=== PATIENT | female | born 1990 | race Caucasian/White ===

== ENCOUNTER 2019-05-13 07:23 | Inpatient (IN) | payer MEDICAID ==
[~2019-05-13] VITALS: Ht 157.5 cm; Wt 84.4 kg
[2019-05-13 07:29] VITALS: Ht 157.5 cm; Wt 84.4 kg
[2019-05-13 07:30] VITALS: BP 123/78; PULSE 98; RESP 19
[2019-05-13] MEDS ORDERED: AMPICILLIN 2 GM/NS (PMX) 100 ML ONE (07:54)
[2019-05-13] MEDS ORDERED: IBUPROFEN 600 MG TAB PO PRN (08:00)
[2019-05-13] MEDS ORDERED: MINERAL OIL LIGHT 10 ML VIAL TOP PRN (08:00)
[2019-05-13] MEDS ORDERED: LIDOCAINE 1% (MPF) 30 ML INJ INJ PRN (08:00)
[2019-05-13] MEDS ORDERED: OXYTOCIN 30 UNITS/LR 500 ML IV PRN ×2 (08:00→11:30)
[2019-05-13] MEDS ORDERED: BUTORPHANOL 2 MG INJ IV PRN (08:00)
[2019-05-13] MEDS ORDERED: METHYLERGONOVINE 0.2 MG INJ IM PRN ×2 (08:00→11:30)
[2019-05-13] MEDS ORDERED: CARBOPROST 250 MCG INJ IM PRN ×2 (08:00→11:30)
[2019-05-13] MEDS ORDERED: OXYTOCIN 30 UNITS/LR 500 ML IV SCH ×3 (08:00→11:09)
[2019-05-13] MEDS ORDERED: AMPICILLIN 2 GM/NS (PMX) 100 ML IV ONE (08:00)
[2019-05-13] MEDS ORDERED: MISOPROSTOL 200 MCG TAB PR PRN ×2 (08:00→11:30)
[2019-05-13] MEDS: LACTATED RINGER'S 1,000 ML IV SCH ×2 (08:05→18:04)
[2019-05-13] MEDS ORDERED: morphine 10 MG INJ ONE ×2 (10:20)
[2019-05-13] MEDS ORDERED: morphine LIQ (10 MG/5 ML) CUP PO ONE (11:00)
[2019-05-13] MEDS ORDERED: morphine 10 MG INJ IV ONE (11:00)
[2019-05-13] MEDS ORDERED: DIPHENHYDRAMINE 25 MG CAP PO PRN (11:30)
[2019-05-13] MEDS ORDERED: morphine 10 MG INJ IM ONE (11:30)
[2019-05-13] MEDS ORDERED: ACETAMINOPHEN 325 MG TAB PO PRN (11:30)
[2019-05-13] MEDS ORDERED: HYDROCODONE/APAP (5/325) TAB PO PRN (11:30)
[2019-05-13] MEDS ORDERED: WITCH HAZEL/GLYCERIN PAD PR PRN (11:30)
[2019-05-13] MEDS ORDERED: BENZOCAINE 20% 56 ML SPRAY TOP PRN (11:30)
[2019-05-13] MEDS ORDERED: SENNA/DOCUSATE NA (8.6MG/50MG) TAB PO PRN (11:30)
[2019-05-13] MEDS ORDERED: ZOLPIDEM 5 MG TAB PO PRN (11:30)
[2019-05-13] MEDS ORDERED: NACL 0.9% 3 ML SYG IV SCH (11:30)
[2019-05-13] MEDS ORDERED: ONDANSETRON 4 MG INJ IV PRN (11:30)
[2019-05-13] MEDS ORDERED: LANOLIN HPA 1 PKT TOP PRN (11:30)
[2019-05-13] MEDS ORDERED: MAGNESIUM HYDROXIDE 30ML CUP PO PRN (11:30)
[2019-05-13] MEDS ORDERED: AMPICILLIN 1 GM/NS (PMX) 50 ML IV SCH (12:00)
[2019-05-13 15:00] VITALS: BP 115/71; PULSE 66; RESP 18
[2019-05-13 16:00] VITALS: BP 109/67; PULSE 78; RESP 18
[2019-05-13] MEDS: IBUPROFEN 600 MG TAB PO SCH ×3 (18:02→23:49)
[2019-05-13 20:10] VITALS: BP 112/72; PULSE 68; RESP 18
[2019-05-14] VITALS: BP 110/70; PULSE 68; RESP 18
[2019-05-14 04:10] VITALS: BP 106/70; PULSE 68; RESP 18
[2019-05-14] MEDS: IBUPROFEN 600 MG TAB PO SCH ×4 (05:44→23:57)
[2019-05-14 08:00] VITALS: BP 100/54; PULSE 80; RESP 16
[2019-05-14 15:56] VITALS: BP 120/84; PULSE 65; RESP 18
[2019-05-14 20:40] VITALS: BP 112/72; PULSE 73; RESP 17
[2019-05-15 04:00] VITALS: BP 103/66; PULSE 76; RESP 18
[2019-05-15] MEDS: IBUPROFEN 600 MG TAB PO SCH ×2 (06:37→13:12)
[2019-05-15 07:30] VITALS: BP 105/66; PULSE 90; RESP 17
[2019-05-15] MEDS ORDERED: DIPHTH/TET/ACEL PERTUSS (ADULT) 0.5 ML VIAL IM* ONE (09:00)
[2019-05-15] MEDS ORDERED: MEASLES,MUMPS,RUBELLA VACCINE INJ SC* ONE (09:00)
== END 2019-05-15 16:00 | disposition home or self-care (01) | DRG 807 ==
LOC: OBT 07:23 → L-D 07:23 → OBT 07:38 → L-D 08:01 → PP1 14:28
PROVIDERS: ADMIT Obstetrics & Gynecology; ATTEND Obstetrics & Gynecology
PROC: 10E0XZZ Delivery of Products of Conception, External Approach (ICD-10-PCS; principal; 2019-05-15)
PROC: 0KQM0ZZ Repair Perineum Muscle, Open Approach (ICD-10-PCS; 2019-05-15)
PROC: 3E033VJ Introduction of Other Hormone into Peripheral Vein, Percutaneous Approach (ICD-10-PCS; 2019-05-15)
DX: O70.1 Second degree perineal laceration during delivery (principal); Z37.0 Single live birth; Z3A.37 37 weeks gestation of pregnancy
CPT/HCPCS: 85025; 85610; 85730; 86592; 86850; 86900; 86901; 87340; 88307; G0463; J0290; J0595; J2270; J2590; J7120